=== PATIENT | male | born 1990 | race Caucasian/White ===

== ENCOUNTER 2020-04-08 10:24 | Emergency (ER) | payer OTHER, MEDICAID, SELFPAY ==
[2020-04-08] VITALS (8 sets, daily range): BP systolic 110–145; BP diastolic 60–81; PULSE 70–103; RESP 16–21; TEMP 37.1; O2SAT 98–100; BMI 22.2
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
[2020-04-08] MEDS: ONDANSETRON 4 MG ODT SL (11:07)
[2020-04-08] MEDS: OXYCODONE/ACETAMINOPHEN 5/325 TABLET 2 TAB PO (11:07)
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
[2020-04-08] MEDS: fentaNYL 100 MCG/2 ML INJ 50 MCG IV (17:15)
--- NOTE | 2020-04-08 17:54 | PC.NURSE ---
Pt tolerated procedural sedation well. Speaking throughout and VSS. Curt RT at bedside for duration.
[2020-04-08] MEDS: fentaNYL 100 MCG/2 ML INJ 200 MCG IV (17:58)
[2020-04-08] MEDS: MIDAZOLAM 2 MG/2 ML VIAL IV (17:59)
[2020-04-08] MEDS: LIDO 1%/SOD BICARB 8.4% (10ML) 10 ML SYRINGE INJ (17:59)
== END 2020-04-08 18:42 | disposition home or self-care (01) ==
PROVIDERS: Emergency Provider Emergency Medicine
DX: S02.832B Fracture of medial orbital wall, left side, initial encounter for open fracture (principal); S02.32XB Fracture of orbital floor, left side, initial encounter for open fracture; Y04.2XXA Assault by strike against or bumped into by another person, initial encounter; H04.89 Other disorders of lacrimal system
CPT/HCPCS: 12014; 36415; 70450; 70486; 99152; 99284; J2250; J3010

== ENCOUNTER 2020-08-30 02:26 | Emergency (ER) | payer OTHER, MEDICAID, SELFPAY ==
[2020-08-30] VITALS (16 sets, daily range): BP systolic 115–144; BP diastolic 68–96; PULSE 66–93; RESP 12–16; TEMP 36.9–37; O2SAT 98–100; BMI 32.0
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
[2020-08-30] MEDS: OXYCODONE/ACETAMINOPHEN 5/325 TABLET 1 TAB PO (03:46)
[2020-08-30] MEDS: KETOROLAC 30 MG/ML VIAL IM (03:47)
== END 2020-08-30 06:27 | disposition home or self-care (01) ==
PROVIDERS: Emergency Provider Emergency Medicine
DX: S06.0X9A Concussion with loss of consciousness of unspecified duration, initial encounter (principal); S02.2XXA Fracture of nasal bones, initial encounter for closed fracture; V89.2XXA Person injured in unspecified motor-vehicle accident, traffic, initial encounter
CPT/HCPCS: 70450; 70486; 72125; 96372; 99284; 99285; J1885